=== PATIENT | female | born 1995 | race Caucasian/White ===

== ENCOUNTER 2016-04-27 16:43 | Emergency (ER) | payer SELFPAY ==
[2016-04-27 20:44] LABS: HCG URINE NEGATIVE (NEGATIVE)
== END 2016-04-27 21:51 | disposition home or self-care (01) ==
LOC: D.ER 16:43
PROVIDERS: Physician Assistant Medical
DX: S00.03XA Contusion of scalp, initial encounter (principal); V80.010A Animal-rider injured by fall from or being thrown from horse in noncollision accident, initial encounter; Y93.52 Activity, horseback riding; Y92.89 Other specified places as the place of occurrence of the external cause; S16.1XXA Strain of muscle, fascia and tendon at neck level, initial encounter; F17.200 Nicotine dependence, unspecified, uncomplicated